=== PATIENT | female | born 1990 | race Caucasian/White ===

== ENCOUNTER 2017-06-03 19:14 | Emergency (ER) | payer BC ==
[~2017-06-03] VITALS: Ht 170.2 cm; Wt 71.0 kg
[2017-06-03 19:26] VITALS: TEMP 36.9; Ht 170.2 cm; Wt 71.0 kg
[2017-06-03] MEDS ORDERED: ALUMSUS2 PO (19:51)
[2017-06-03] MEDS ORDERED: PROM25TA9 PO (19:51)
[2017-06-03] MEDS ORDERED: SULF800T23 PO (19:51)
[2017-06-03] MEDS ORDERED: CTP/1 PO (19:51)
[2017-06-03] MEDS ORDERED: MOML PO (19:51)
[2017-06-03] MEDS ORDERED: HYDR25TA4 PO (19:51)
[2017-06-03] MEDS ORDERED: [UNRECOGNIZED DRUG - OTHER] IM (19:51)
[2017-06-03] MEDS ORDERED: MULT-506 PO (19:51)
[2017-06-03] MEDS ORDERED: IBUP600T44 PO (19:51)
[2017-06-03] MEDS ORDERED: ACET-1311 PO (19:51)
[2017-06-03] MEDS ORDERED: POTA20TA16 PO (19:51)
[2017-06-03] MEDS ORDERED: GABA600T PO (19:51)
[2017-06-03] MEDS ORDERED: GABA1CAP4 PO (19:51)
[2017-06-03] MEDS ORDERED: HYDR50CA2 PO (19:51)
[2017-06-03] MEDS ORDERED: MELATAB2 PO (19:51)
[2017-06-03] MEDS ORDERED: IMD/2 PO (19:51)
[2017-06-03] MEDS ORDERED: DOXE50CA3 PO (19:51)
--- NOTE | 2017-06-03 20:56 | DIAGNOSTIC IMAGING REPORT ---
RIGHT LOWER EXTREMITY VENOUS DOPPLER CLINICAL HISTORY: Right leg swelling. COMPARISON STUDY: No previous studies for comparison. TECHNIQUE: Sonography of the deep venous system of the right lower extremity was performed. Compression and augmentation were evaluated. FINDINGS: The right common femoral, superficial femoral and popliteal veins were compressible. Augmentation was normal. Flow was shown within the deep calf vessels. IMPRESSION: No evidence of deep venous thrombus within the right lower extremity. Electronically signed by: Manuel Lynn M.D. 06/03/2017 8:54 PM Dictated Date/Time: 06/03/2017 8:54 PM
--- NOTE | 2017-06-03 21:16 | EMERGENCY ROOM VISIT NOTE ---
History First contact with patient: 19:32 Chief Complaint: SWELLING TO EXTREMITY Stated Complaint: SWELLING IN R LEG History of Present Illness The patient is a 26 year old female who presents to the Emergency Room with complaints of swelling of her right leg. The patient states that she is currently at [facility]. She first noticed swelling of her right leg yesterday. She denies any injury prior to the onset of swelling. The swelling extended from below the knee to the foot. She was given 2 doses of Lasix with improvement. The patient denies history of swelling in her legs. She does state that she was recently very sedentary due to being in senior living for 17 days. She states that she then drove 3 hours here. She reports soreness in her leg which she rates a 7.5/10. She denies any history of blood clots. She is a smoker. She denies control pill use. She denies any chest pain or shortness of breath. Review of Systems A complete 10 point review of systems was reviewed with the patient with pertinent positives and negatives as per history of present illness. All else were negative. Social History Smoking Status: Current Every Day Smoker Current/Historical Medications Scheduled Gabapentin (Gabapentin), 1 CAP PO TID Gabapentin (Neurontin), 600 MG PO HS Hydrochlorothiazide (Hctz), 25 MG PO DAILY Loperamide Hcl (Imodium), 2 MG PO UD Multivitamin (Multivitamin), 1 TAB PO DAILY Potassium Ext Rel (Klor-Con), 20 MEQ PO DAILY Sulfa/Trimethoprim (Bactrim Ds 800MG/160MG), 1 TAB PO BID Scheduled PRN Acetaminophen (Tylenol), 650 MG PO QID PRN for Pain Aluminum/Magnesium/Simeth (Maalox Max Susp), 30 ML PO TID PRN for Constipation Clonidine Hcl (Catapres), 0.1 MG PO BID PRN for Anxiety Doxepin (Sinequan), 50 MG PO HS PRN for Insomnia Hydroxyzine Pamoate (Vistaril), 1 CAP PO TID PRN for Anxiety Ibuprofen (Motrin), 600 MG PO QID PRN for Pain Magnesium Hydroxide (Milk Of Magnesia), 30 ML PO DAILY PRN for Constipation Melatonin (Melatonin Maximum Strengt), 1 TAB PO HS PRN for Sleep Naloxone HCl (Naloxone HCl), 0.4 MG IM UD PRN for SEDATION Promethazine Hcl (Phenergan), 25 MG PO QID PRN for Nausea Physical Exam Vital Signs Date Time Temp Pulse Resp B/P (MAP) Pulse Ox O2 Delivery O2 Flow Rate FiO2 06/03/17 21:27 82 18 99/61 99 06/03/17 19:26 36.9 94 18 101/66 98 Room Air Physical Exam VITALS: Vitals are noted on the nurse's note and reviewed by myself. Vital signs stable. GENERAL: This is a 26-year-old female, in no acute distress, nondiaphoretic, well-developed well-nourished. HEART: Regular rate and rhythm without murmurs gallops or rubs. LUNGS: Clear to auscultation bilaterally without wheezes, rales or rhonchi. EXTREMITIES: There is mild nonpitting edema to the right lower extremity. No erythema, warmth or palpable cords. Dorsalis pedis pulse 2+. Full range of motion and strength 5/5 in the right lower extremity. NEURO: Patient was alert and oriented to person place and time. Normal sensation to light and sharp touch. Medical Decision & Procedures ER Provider Diagnostic Interpretation: RIGHT LOWER EXTREMITY VENOUS DOPPLER FINDINGS: The right common femoral, superficial femoral and popliteal veins were compressible. Augmentation was normal. Flow was shown within the deep calf vessels. IMPRESSION: No evidence of deep venous thrombus within the right lower extremity. Medical Decision Differential includes DVT, superficial thrombosis, cellulitis, among others. The patient was evaluated as above. Ultrasound of the right lower extremity was performed and read by radiology and showed no DVT. Because of the swelling is unclear at this time. I recommended that the patient follow up with her primary care provider for further evaluation and treatment. She should return here for any worsening or new/concerning symptoms. She verbalized understanding of my assessment and treatment plan was discharged home in good condition. Medication Reconcilliation Current Medication List: was personally reviewed by me Blood Pressure Screening Patient's blood pressure: Low blood pressure (patient reports baseline blood pressure is low.) Impression Primary Impression: Right leg swelling Departure Information Dispostion Home / Self-Care Condition GOOD Referrals No Doctor, Assigned (PCP) Patient Instructions My [facility] Additional Instructions Elevate the leg as needed for swelling and pain. For pain control, you can use the following [id number] medicines (if >12 yo): - Regular strength (325mg/tab) Tylenol (acetaminophen) 2 tabs every 4-6 hours as needed. Do not exceed 12 tablets in a 24 hour period. Avoid taking more than 4 grams (4000 mg) of Tylenol per day. This includes any other sources of acetaminophen you may take on a regular basis. - Regular strength (200 mg/tab) Advil (ibuprofen) 1-2 tabs every 4-6 hours as needed. Do not exceed a dose of 3200 mg per day. Follow-up with a primary care provider regarding your leg swelling.
[2017-06-03 21:27] VITALS: BP 99/61; PULSE 82; O2SAT 99
== END 2017-06-03 21:28 | disposition home or self-care (01) ==
LOC: C.EDB 19:16 → C.EDD 21:28
DX: M79.89 Other specified soft tissue disorders (principal); M79.604 Pain in right leg; Z79.899 Other long term (current) drug therapy; F17.200 Nicotine dependence, unspecified, uncomplicated

== ENCOUNTER 2017-06-20 21:23 | Emergency (ER) | payer BC ==
[~2017-06-20] VITALS: Ht 170.2 cm; Wt 77.7 kg
[~2017-06-20 21:23] MED LIST: ACET-1311 PO; ALUMSUS2 PO; CTP/1 PO; DOXE50CA3 PO; GABA1CAP4 PO; GABA600T PO; HYDR25TA4 PO; HYDR50CA2 PO; IBUP600T44 PO; IMD/2 PO; MELATAB2 PO; MOML PO; MULT-506 PO; POTA20TA16 PO; PROM25TA9 PO; SULF800T23 PO; [UNRECOGNIZED DRUG - OTHER] IM
[2017-06-20 21:26] VITALS: TEMP 36.7; Ht 170.2 cm; Wt 77.7 kg
[2017-06-20] MEDS ORDERED: KETOROLAC TROMETHAMINE 30 MG/ML VIAL IV STA (22:17)
[2017-06-20] MEDS ORDERED: MIRT15TA PO (22:17)
[2017-06-20] MEDS ORDERED: ONDANSETRON INJ 2 MG/ML 2 ML VIAL IV STA (22:17)
[2017-06-20] MEDS ORDERED: ABL/5 PO (22:17)
[2017-06-20] MEDS ORDERED: REVIA PO (22:17)
[2017-06-20] MEDS ORDERED: SODIUM CHLORIDE 0.9% 1000ML 1,000 ML IV ONE (22:30)
[2017-06-20] MEDS ORDERED: OPTIRAY 320 IV PRN (22:30)
[2017-06-20] MEDS ORDERED: ACETAMINOPHEN IV 100 ML IV ONE (22:30)
[2017-06-20 23:25] LABS: BASO % 0.2 %; BASO ABS # 0.02 K/uL (0-0.2); COMPLETE YES; EOS % 2.5 %; HEMATOCRIT 38.9 % (37-47); IG% 0.2 %; LYMPH % 32.3 %; LYMPH ABS # 2.96 K/uL (1.2-3.4); MEAN CELL VOLUME 90.7 fL (80-100); MEAN CORPUSCULAR HEMOGLOBIN 30.1 pg (25-34); MEAN CORPUSCULAR HGB CONC 33.2 g/dl (32-36); MEAN PLATELET VOLUME 12.6 fL (7.4-10.4); MONO % 7.5 %; NEUT % 57.3 %; PLATELET COUNT 180 K/uL (130-400); RED BLOOD COUNT 4.29 M/uL (4.2-5.4); WHITE BLOOD COUNT 9.17 K/uL (4.8-10.8)
[2017-06-20 23:37] LABS: URINE APPEARANCE CLEAR (CLEAR); URINE BILIRUBIN NEG (NEG); URINE COLOR YELLOW; URINE NITRITE NEG (NEG); URINE PH 6.5 (4.5-7.5); UROBILINOGEN NEG (NEG); ZZUR CULT IF INDIC CLEAN CATCH NO
[2017-06-20 23:39] LABS: MANUAL MICROSCOPIC REQUIRED? NO; REVIEW REQ? NO
[2017-06-20 23:42] LABS: BUN/CREATININE RATIO 26.7 (10-20); CALCIUM 8.9 mg/dl (8.5-10.1); CREATININE 0.75 mg/dl (0.60-1.20); POTASSIUM 3.5 mmol/L (3.5-5.1)
[2017-06-20 23:45] LABS: ALB/GLOB RATIO 0.9 (0.9-2)
[2017-06-21] MEDS ORDERED: ONDANSETRON INJ 2 MG/ML 2 ML VIAL IV STA (02:12)
[2017-06-21] MEDS ORDERED: ONDANSETRON HOME PACK 4MG OD TAB PO ONE (02:15)
[2017-06-21] MEDS ORDERED: DOCUSATE SODIUM 100 MG CAP PO ONE (02:15)
--- NOTE | 2017-06-21 02:53 | EMERGENCY ROOM VISIT NOTE ---
History First contact with patient: 21:59 Chief Complaint: ABDOMINAL PAIN Stated Complaint: AB PAIN Nursing Triage Summary: left lower abdominal paina with nausea and vomiting History of Present Illness The patient is a 26 year old female who presents to the Emergency Room with complaints of generalized abdominal pain with nausea for the past 2-3 days. The patient is currently at [facility], a local drug and alcohol treatment facility. She does not report injury or trauma. She does not have fever or chills. She has not abused opioids in 1 week. The patient reports one previous abdominal surgery for a detached ureter that was repaired. The patient denies chance of , stating that her last menses was about 5 or 6 weeks ago. The patient's discomfort at times will be worse in the left side abdomen. It is colicky in nature and does not appear to worsen with food or activity. She is not having flank or back pain. No difficulties with urination. She has had some watery bowel movements. She rates her overall discomfort a 9/10. She prefers no narcotic treatment as she is under the care of a drug and alcohol facility. Review of Systems More than 10 systems were reviewed and otherwise negative with the exception of history of present illness. Past Medical/Surgical History History of opioid abuse Family History No pertinent family history Social History Smoking Status: Current Every Day Smoker Housing Status: other Current/Historical Medications Scheduled Aripiprazole (Abilify), 5 MG PO DAILY Mirtazapine (Remeron), 15 MG PO HS Multivitamin (Multivitamin), 1 TAB PO DAILY [Revia], 1 TAB PO QAM Scheduled PRN Acetaminophen (Tylenol), 650 MG PO QID PRN for Pain Aluminum/Magnesium/Simeth (Maalox Max Susp), 30 ML PO TID PRN for Constipation Clonidine Hcl (Catapres), 0.1 MG PO BID PRN for Anxiety Hydroxyzine Pamoate (Vistaril), 1 CAP PO TID PRN for Anxiety Ibuprofen (Motrin), 600 MG PO QID PRN for Pain Promethazine Hcl (Phenergan), 25 MG PO QID PRN for Nausea Physical Exam Vital Signs Date Time Temp Pulse Resp B/P (MAP) Pulse Ox O2 Delivery O2 Flow Rate FiO2 06/21/17 02:03 88 18 92/45 100 Room Air 06/21/17 00:30 88 18 112/60 96 Room Air 06/20/17 23:18 88 20 106/62 98 Room Air 06/20/17 21:26 36.7 102 20 100/62 98 Room Air Physical Exam VITALS: Vitals are noted on the nurse's note and reviewed by myself. Vital signs stable. GENERAL: Well-developed, well-nourished, white female, who is in no acute distress and resting comfortably. Patient is cooperative with the examination. HEAD: Normocephalic atraumatic. EARS: External ear normal. External auditory canals clear, tympanic membranes pearly jama without erythema or effusion bilaterally. EYES: Pupils equal round and reactive to light and accommodation. Conjunctivae without injection, sclerae without icterus. Extraocular movements intact. NOSE: Patent, turbinates without inflammation or discharge. MOUTH: Mucous membranes moist. Tonsils are not enlarged. Pharynx without erythema, blood, or exudate. Uvula midline. Airway patent. NECK: Supple without nuchal rigidity. No lymphadenopathy. No thyromegaly. Cervical spine is nontender. HEART: Regular rate and rhythm without murmurs gallops or rubs. LUNGS: Clear to auscultation bilaterally without wheezes, rales or rhonchi. No retractions or accessory muscle use. ABDOMEN: Positive normal bowel sounds x 4. Soft with generalized tenderness. There is some tenderness that appears more on the left than the right. There is no distinct point tenderness. No CVA tenderness. MUSCULOSKELETAL: No muscle atrophy, erythema, or edema noted. Full range of motion without joint tenderness in all extremities. Medical Decision & Procedures ER Provider Diagnostic Interpretation: Preliminary Findings Only See Final Report For Complete Findings US PELVIC/ENDOVAG: Retroverted uterus measures 6.9 x 4.3 x 5.5 cm. Endometrium measures 7 mm in thickness. No focal myometrial lesion. Right ovary measures 4.0 x 1.8 x 1.9 cm. Normal appearance with normal color Doppler flow. No adnexal mass. Left ovary measures 4.9 x 2.2 x 3.1 cm. Probable corpus luteum versus small hemorrhagic cyst within the left ovary measuring up to 2.8 cm. Normal color Doppler flow to the left ovary. No adnexal mass. Trace fluid in the cul-de-sac may be physiologic. Preliminary Findings Only See Final Report For Complete Findings CT ABDOMEN & PELVIS: Small involuting cyst/follicle in the left ovary. Age indeterminate mild superior endplate compression deformity of the L1 vertebral body without significant retropulsion of the posterior cortex. Please correlate with point tenderness in this region. No other acute fracture. Moderate stool throughout the colon. Please correlate with constipation. Oral contrast noted in the stomach, small bowel loops, and cecum. No bowel obstruction or inflammation. Normal appendix. Mild atrophy of the left kidney. No hydronephrosis or stone in either kidney. Umbilical piercing. Laboratory Results 06/20/17 23:00 Red Blood Count 4.29, Mean Corpuscular Volume 90.7, Mean Corpuscular Hemoglobin 30.1, Mean Corpuscular Hemoglobin Concent 33.2, Mean Platelet Volume 12.6, Neutrophils (%) (Auto) 57.3, Lymphocytes (%) (Auto) 32.3, Monocytes (%) (Auto) 7.5, Eosinophils (%) (Auto) 2.5, Basophils (%) (Auto) 0.2, Neutrophils # (Auto) 5.25, Lymphocytes # (Auto) 2.96, Monocytes # (Auto) 0.69, Eosinophils # (Auto) 0.23, Basophils # (Auto) 0.02 06/20/17 23:00 Test 06/20/17 23:00 White Blood Count 9.17 K/uL (4.8-10.8) Red Blood Count 4.29 M/uL (4.2-5.4) Hemoglobin 12.9 g/dL (12.0-16.0) Hematocrit 38.9 % (37-47) Mean Corpuscular Volume 90.7 fL (80-100) Mean Corpuscular Hemoglobin 30.1 pg (25-34) Mean Corpuscular Hemoglobin Concent 33.2 g/dl (32-36) Platelet Count 180 K/uL (130-400) Mean Platelet Volume 12.6 fL (7.4-10.4) Neutrophils (%) (Auto) 57.3 % Lymphocytes (%) (Auto) 32.3 % Monocytes (%) (Auto) 7.5 % Eosinophils (%) (Auto) 2.5 % Basophils (%) (Auto) 0.2 % Neutrophils # (Auto) 5.25 K/uL (1.4-6.5) Lymphocytes # (Auto) 2.96 K/uL (1.2-3.4) Monocytes # (Auto) 0.69 K/uL (0.11-0.59) Eosinophils # (Auto) 0.23 K/uL (0-0.5) Basophils # (Auto) 0.02 K/uL (0-0.2) RDW Standard Deviation 46.4 fL (36.4-46.3) RDW Coefficient of Variation 13.9 % (11.5-14.5) Immature Granulocyte % (Auto) 0.2 % Immature Granulocyte # (Auto) 0.02 K/uL (0.00-0.02) Urine Color YELLOW Urine Appearance CLEAR (CLEAR) Urine pH 6.5 (4.5-7.5) Urine Specific Shell 1.010 (1.000-1.030) Urine Protein NEG (NEG) Urine Glucose (UA) NEG (NEG) Urine Ketones NEG (NEG) Urine Occult Blood NEG (NEG) Urine Nitrite NEG (NEG) Urine Bilirubin NEG (NEG) Urine Urobilinogen NEG (NEG) Urine Leukocyte Esterase TRACE (NEG) Urine WBC (Auto) 1-5 /hpf (0-5) Urine RBC (Auto) 0-4 /hpf (0-4) Urine Hyaline Casts (Auto) 1-5 /lpf (0-5) Urine Epithelial Cells (Auto) 5-10 /lpf (0-5) Urine Bacteria (Auto) NEG (NEG) Urine Test NEG (NEG) Anion Gap 6.0 mmol/L (3-11) Est Creatinine Clear Calc Drug Dose 121.0 ml/min Estimated GFR () 126.6 Estimated GFR (Non- 109.2 BUN/Creatinine Ratio 26.7 (10-20) Calcium Level 8.9 mg/dl (8.5-10.1) Total Bilirubin 0.2 mg/dl (0.2-1) Aspartate Amino Transf (AST/SGOT) 22 U/L (15-37) Alanine Aminotransferase (ALT/SGPT) 40 U/L (12-78) Alkaline Phosphatase 49 U/L (45-117) Total Protein 7.2 gm/dl (6.4-8.2) Albumin 3.5 gm/dl (3.4-5.0) Globulin 3.7 gm/dl (2.5-4.0) Albumin/Globulin Ratio 0.9 (0.9-2) Lipase 145 U/L (73-393) Medications Administered Medications (Trade) Dose Ordered Sig/Mary Route Start Time Stop Time Status Last Admin Dose Admin Sodium Chloride 1,000 ml @ 999 mls/hr Q1H1M ONCE IV 06/20/17 22:30 06/20/17 23:30 DC 06/20/17 23:19 999 MLS/HR Ketorolac Tromethamine (Toradol Inj) 30 mg NOW STAT IV 06/20/17 22:17 06/20/17 22:19 DC 06/20/17 23:18 30 MG Ondansetron HCl (Zofran Inj) 4 mg NOW STAT IV 06/20/17 22:17 06/20/17 22:19 DC 06/20/17 23:19 4 MG Acetaminophen 100 ml @ 400 mls/hr NOW ONCE IV 06/20/17 22:30 06/20/17 22:44 DC 06/20/17 23:19 400 MLS/HR Ondansetron HCl (Zofran Inj) 4 mg NOW STAT IV 06/21/17 02:12 06/21/17 02:13 DC 06/21/17 02:22 4 MG Docusate Sodium (coLACE CAP) 100 mg NOW ONCE PO 06/21/17 02:15 06/21/17 02:16 DC 06/21/17 02:22 100 MG ED Course Physical exam and history were performed. Nursing notes, EMR, and Medication List were personally reviewed. Patient appears to have generalized abdominal pain that is somewhat worse on the left side at times and worse on the left with palpation. IV access was established and labs were obtained. The patient was hydrated with normal saline. She is nauseated and was provided IV Zofran, IV Toradol, and IV Tylenol. Ultrasound and CT scan were performed. The patient's blood work is as above and was reviewed. She does not have a significantly elevated white blood cell count, gross anemia, bandemia, or significant electrolyte imbalance. Lipase and transaminases are nondiagnostic. She is not and her urine is without evidence of UTI. The patient's ultrasound does not show acute findings. Her CT scan was without acute surgical abdominal process. CT scan does suggest increased stool, and her symptoms certainly could, in part, be related to constipation. On reevaluation the patient was resting comfortably in her emergency department bed. She did have some persistent nausea, and I did elect to provide her an additional dose of Zofran. She does not appear to have a significant process to require admission, and she did feel better after the above interventions. The patient will be given a short course of Zofran as well as a dose of Colace. I did discuss MiraLAX and magnesium citrate, however the patient preferred to avoid these. The patient does appear stable for discharge back to [facility] , which is her preferred disposition. Case management was engaged to assist with transport back to the facility. The patient was pleased with plan of care today and rated her discomfort a 1/10 at the time of departure. The chart was completed utilizing [employer] Speech Voice Recognition Software. Grammatical errors, random word insertions, pronoun errors, and incomplete sentences are an occasional consequence of this system due to software limitations, ambient noise, and hardware issues. Any formal questions or concerns about the content, text, or information contained within the body of this dictation should be directly addressed to the provider for clarification. . Medical Decision Differential diagnosis: Etiologies such as appendicitis, diverticulitis, PUD, biliary pathology, UTI, pancreatitis, obstruction, mesenteric ischemia, aortic pathology, infections, inflammatory bowel disease, renal colic, as well as others were entertained. Impression Primary Impression: Generalized abdominal pain Additional Impression: Nausea Departure Information Dispostion Home / Self-Care Condition GOOD Forms HOME CARE DOCUMENTATION FORM, IMPORTANT VISIT INFORMATION Patient Instructions My [facility] Additional Instructions You were seen and evaluated today on an emergency basis only. This is not a substitute for, or an effort to provide, complete comprehensive medical care. It is not possible to recognize and treat all injuries or illnesses in a single emergency department visit. For this reason it is recommended that you followup with your primary care physician with any ongoing or persistent symptoms. You may need GI follow-up if symptoms persist. For baseline pain relief you may alternate ibuprofen and acetaminophen every 4 hours for pain control. Take 600 mg ibuprofen (Advil) and then 4 hours later take 1000 mg acetaminophen (Tylenol). Do not take more than 3000 mg acetaminophen in a single day. Drink plenty of fluids and remain well hydrated. Zofran 1 tablet every 6 hrs as needed for nausea. Consider [id number] Colace 100 mg twice daily to help with bowel movements. You are welcome to return to the emergency department anytime with new, worsening, or concerning symptoms. Problem Qualifiers
[2017-06-21 04:42] VITALS: BP 106/58; PULSE 82; O2SAT 99
--- NOTE | 2017-06-21 07:08 | DIAGNOSTIC IMAGING REPORT ---
ABDOMEN AND PELVIS CT WITH IV AND ORAL CONTRAST CT DOSE: 327.09 mGy.cm HISTORY: Left lower quadrant abdominal pain. TECHNIQUE: Multiaxial CT images of the abdomen and pelvis were performed following the use of intravenous and oral contrast. A dose lowering technique was utilized adhering to the principles of ALARA. COMPARISON STUDY: None. FINDINGS: Age-indeterminate mild superior endplate compression deformity at L1. The lung bases are clear. No pneumoperitoneum. No pneumatosis. The liver, spleen, gallbladder, pancreas, adrenal glands, and right kidney are unremarkable. Mild atrophic left kidney. No hydronephrosis. No renal stones. No retroperitoneal lymphadenopathy. Trace pelvic free fluid is likely physiologic. A 2.6 cm follicle/cyst within the left ovary. Normal right ovary. No bowel wall thickening or obstruction. Normal appendix. IMPRESSION: 1. Age-indeterminate mild superior endplate compression deformity at L1. No retropulsion. 2. No bowel wall thickening or obstruction. 3. Mild atrophy of the left kidney. No hydronephrosis. 4. Trace pelvic free fluid. This is likely physiologic. Electronically signed by: Rebel Bruno M.D. 06/21/2017 7:07 AM Dictated Date/Time: 06/21/2017 7:02 AM
--- NOTE | 2017-06-21 07:38 | DIAGNOSTIC IMAGING REPORT ---
PELVIC ULTRASOUND CLINICAL HISTORY: Left lower quadrant abdominal pain. COMPARISON STUDY: None. TECHNIQUE: Transabdominal and transvaginal sonography of the pelvis was performed. FINDINGS: The uterus measures 6.9 x 4.3 x 5.5 cm. Endometrium measures 7 mm in thickness. Right ovary is normal, measuring 4 x 1.8 x 1.9 cm. The left ovary measures 4.9 x 2.2 x 3.1 cm. Color flow is identified within each ovary. There is a 2.8 cm hypoechoic left ovarian lesion likely reflects a corpus luteal/hemorrhagic cyst. A small amount of fluid is noted within the pelvis. IMPRESSION: 1. 2.8 cm hypoechoic left ovarian lesion which suggests a corpus luteal/hemorrhagic cyst. 2. Trace fluid within the pelvis. 3. No sonographic evidence of ovarian torsion. Electronically signed by: Manuel Lynn M.D. 06/21/2017 7:36 AM Dictated Date/Time: 06/21/2017 7:34 AM
== END 2017-06-21 04:46 | disposition home or self-care (01) ==
LOC: EDBD 21:23 → C.EDB 21:24
DX: R10.32 Left lower quadrant pain (principal); R11.2 Nausea with vomiting, unspecified; F17.210 Nicotine dependence, cigarettes, uncomplicated; F11.10 Opioid abuse, uncomplicated